=== PATIENT | male | born 1995 | race Caucasian/White ===

== ENCOUNTER 2017-11-23 21:17 | Emergency (ER) | payer OTHER ==
[~2017-11-23 21:17] MED LIST: Sodium Chloride Irrig Solution 250 ML BOT ONE
[2017-11-23] MEDS ORDERED: Adacel (T-DAP) 0.5 ML VIAL ONE (21:59)
[2017-11-23] MEDS ORDERED: Bacitracin Zinc 1 Packet ONE (22:56)
== END 2017-11-23 23:01 | disposition home or self-care (01) ==
LOC: MADERS 21:17
DX: S61.012A Laceration without foreign body of left thumb without damage to nail, initial encounter (principal); W26.0XXA Contact with knife, initial encounter
CPT/HCPCS: 12001; 90471; 90715; J2001